=== PATIENT | male | born 1990 | race Caucasian/White ===

== ENCOUNTER 2017-08-15 15:33 | Emergency (ER) | payer MEDICAID ==
[~2017-08-15] VITALS: Ht 185.4 cm; Wt 74.8 kg
[2017-08-15] MEDS ORDERED: PENICILLIN VK500 MG PO (15:34)
[2017-08-15] MEDS ORDERED: Peridex 473 ML473 ML PO (15:34)
[2017-08-15] MEDS ORDERED: NAPROSYN500 MG PO (15:34)
== END 2017-08-15 15:55 | disposition home or self-care (01) ==
LOC: ED 15:33
DX: K02.9 Dental caries, unspecified (principal); R03.0 Elevated blood-pressure reading, without diagnosis of hypertension